=== PATIENT | female | born 1970 | race African-American/Black ===

== ENCOUNTER 2023-10-07 16:47 | Emergency (ER) | payer SELFPAY ==
[~2023-10-07] VITALS: Ht 162.6 cm; Wt 64.0 kg
[2023-10-07 16:56] VITALS: O2SAT 99
[2023-10-08 01:36] VITALS: BP 117/80; PULSE 79; RESP 18; TEMP 97.4
== END 2023-10-08 03:04 | disposition home or self-care (01) ==
LOC: ER 16:47
DX: F10.129 Alcohol abuse with intoxication, unspecified (principal); Y90.9 Presence of alcohol in blood, level not specified
CPT/HCPCS: 82962; 99283; Z7610